=== PATIENT | female | born 1970 | race Caucasian/White ===

== ENCOUNTER 2018-08-20 09:31 | Outpatient (CLI) | payer BC ==
--- NOTE | 2018-08-20 10:44 | RAD ---
FRONTAL VIEW ABDOMEN/KUB: INDICATIONS: Pain. Fever. FINDINGS: The upper abdomen is excluded from view, limiting assessment. The bowel gas pattern is not obstructe d, with mild retained fecal material in the colon. Suture material is seen overlying the central pel vis. Mild osseous degenerative change is present. IMPRESSION: Nonobstructive bowel gas pattern. POS: [facility]
== END 2018-08-20 09:32 | disposition home or self-care (01) ==
LOC: RAD-FRANK 09:31
PROVIDERS: ATTEND Nurse Practitioner Family
DX: R50.9 Fever, unspecified (principal)
CPT/HCPCS: 74018

== ENCOUNTER 2022-03-23 07:45 | Outpatient (CLI) | payer BC | END 2022-03-23 07:46 | disposition home or self-care (01) | LOC: RAD-FRANK 07:45 | PROVIDERS: ATTEND Nurse Practitioner Family | DX: M25.552 Pain in left hip (principal) ==

== ENCOUNTER 2022-10-18 08:56 | Outpatient (CLI) | payer BC | END 2022-10-18 08:57 | disposition home or self-care (01) | LOC: RAD-FRANK 08:56 | PROVIDERS: ATTEND Nurse Practitioner Family | DX: M54.6 Pain in thoracic spine (principal); M47.814 Spondylosis without myelopathy or radiculopathy, thoracic region | CPT/HCPCS: 72072 ==